=== PATIENT | female | born 1985 | race Caucasian/White ===

== ENCOUNTER 2019-06-06 14:06 | Outpatient (CLI) | payer OTHER ==
[~2019-06-06 14:06] MED LIST: AMPICILLIN TRI500 MG PO; LEVORA-281 TAB; PRENATAL CAPLE1 EACH; VALTREX1000 MG PO
== END 2019-06-06 15:00 | disposition home or self-care (01) ==
LOC: PRENATAL 14:06
DX: O98.911 Unspecified maternal infectious and parasitic disease complicating pregnancy, first trimester (principal); O09.521 Supervision of elderly multigravida, first trimester; O99.211 Obesity complicating pregnancy, first trimester

== ENCOUNTER 2019-07-11 17:17 | Outpatient (CLI) | payer OTHER | END 2019-07-11 18:17 | disposition home or self-care (01) | LOC: LAB 17:17 | DX: O09.529 Supervision of elderly multigravida, unspecified trimester (principal); O99.210 Obesity complicating pregnancy, unspecified trimester ==

== ENCOUNTER → 2019-07-11 | Outpatient (CLI) | payer OTHER | END | disposition home or self-care (01) | LOC: PRENATAL 14:59 | DX: O35.3XX0 Maternal care for (suspected) damage to fetus from viral disease in mother, not applicable or unspecified (principal); O09.512 Supervision of elderly primigravida, second trimester ==

== ENCOUNTER 2023-12-21 17:37 | Emergency (ER) | payer OTHER ==
[~2023-12-21] VITALS: Ht 154.9 cm; Wt 90.3 kg
[2023-12-21] MEDS ORDERED: OZEMPIC0.25 MG/02 SQ (17:58)
[2023-12-21] MEDS ORDERED: FAMOTIDINE/PF 20 MG in 0.9 % SODIUM CHLORIDE 8 ML IV PUSH STA (18:29)
[2023-12-21] MEDS ORDERED: ONDANSETRON HCL 2 MG/ML VIAL IV ONE (18:30)
[2023-12-21] MEDS ORDERED: 0.9 % SODIUM CHLORIDE 1,000 ML IV SCH (18:30)
[2023-12-21] MEDS ORDERED: HYOSCYAMINE SULFATE 0.125 MG TAB.SUBL SL ONE (18:30)
[2023-12-21 19:23] LABS: HEMATOCRIT 40.5 % (36.0-45.00); HEMOGLOBIN 13.6 g/dL (12.0-15.00); MEAN CELL VOLUME 77.7 fL (80.00-100.00); MEAN CORPUSCULAR HGB CONC 33.5 g/dl (32.0-36.0); PLATELET COUNT 356 K/uL (150-450); RED BLOOD COUNT 5.22 M/uL (4.00-6.00); RED CELL DISTRIBUTION WIDTH 16.1 % (11.5-14.5)
[2023-12-21 19:40] LABS: ALBUMIN 4.2 gm/dL (3.4-5.0); BILIRUBIN TOTAL 0.77 mg/dL (0.3-1.2); CALCIUM 9.5 mg/dL (8.5-10.1); CREATININE SERUM 0.55 mg/dL (0.55-1.02); GFR 122.42; GLOBULINA 4.7 G/DL (2.4-3.5); POTASSIUM 3.56 mEq/L (3.5-5.1); TOTAL PROTEIN 8.9 gm/dL (6.4-8.2)
[2023-12-21] MEDS ORDERED: PEPCID AC20 MG PO (20:42)
[2023-12-21] MEDS ORDERED: ZOFRAN8 MG PO (20:42)
== END 2023-12-21 20:52 | disposition home or self-care (01) ==
LOC: ER 17:38
PROVIDERS: General Practice
DX: R11.10 Vomiting, unspecified (principal); R11.12 Projectile vomiting; R11.13 Vomiting of fecal matter; R11.14 Bilious vomiting; R11.2 Nausea with vomiting, unspecified; Z88.1 Allergy status to other antibiotic agents